=== PATIENT | female | born 1940 | race Caucasian/White ===

== ENCOUNTER 2016-09-02 08:47 | Emergency (ER) | payer MEDICARE, OTHER ==
[~2016-09-02] VITALS: Ht 154.9 cm; Wt 60.0 kg
[~2016-09-02 08:47] MED LIST: BYST5TAB2 PO; CLIN1CAP6 PO; CLON.5 PO; HYDR25TA5 PO; LEVA500T PO; PRIL40CA PO; ZOCO40TA PO; ZOLO50TA PO
[2016-09-02 08:49] VITALS: BP 136/60; PULSE 128; RESP 18; TEMP 98.8; O2SAT 95
[2016-09-02] MEDS ORDERED: ONDANSETRON HCL 4 MG/2 ML VIAL IVP ONE (09:15)
[2016-09-02] MEDS ORDERED: SODIUM CHLORIDE 0.9% FLUSH 10 ML FLUSH IV FLUSH PRN (09:15)
--- NOTE | 2016-09-02 09:21 | PD ---
HPI Chief Complaint: Abdominal Pain Time Seen by Provider: 09:08 Travel History International Travel<30 days: No Contact w/Intl Traveler<30days: No Traveled to known affect area: No History of Present Illness HPI The patient was seen and examined in the presence of the nurse. Complains of abdominal pain. Rather diffuse in nature but seems worse in the left lower quadrant. She says that she had a CAT scan 3 weeks ago showing diverticulitis and has had multiple antibiotic courses but the pain keeps coming back. Had 2 episodes of diarrhea this morning. Has nausea. No fever. Severity is moderate. No alleviating factors. Duration of pain in total is 5 weeks of abdominal pain PFSH Past Medical History Autoimmune Disease: No Depression: Yes Cancer: No Cardiovascular Problems: Yes High Cholesterol: Yes COPD: Yes Diabetes: No Diminished Hearing: No Endocrine: No Gastrointestinal Disorders: Yes (INGUINAL HERNIA) Genitourinary: No Hypertension: Yes Immune Disorder: No Musculoskeletal: No Neurologic: No Psychiatric: Yes (DR MCQUEEN/DEPRESSION MEDS IN PAST) Reproductive: No Respiratory: Yes Immunizations Current: Yes Past Surgical History Abdominal Surgery: Yes (INGUINAL HERNIORRHAPHY) Body Medical Devices: pin in wrist Eye Surgery: Yes (CATARACTS) Gynecologic Surgery: Yes (TUBAL LIGATION 40 YRS AGO) Social History Alcohol Use: No Tobacco Use: No Substance Use: No Allergies-Medications (Allergen,Severity, Reaction): Coded Allergies: No Known Allergies (Verified , 03/07/16) Reported Meds & Prescriptions Reported Meds & Active Scripts Active Zoloft (Sertraline HCl) 50 Mg Tab 50 Mg PO DAILY Prilosec (Omeprazole) 40 Mg Cap 40 Mg PO DAILY Hydrochlorothiazide 25 Mg Tab 25 Mg PO DAILY Zocor (Simvastatin) 40 Mg Tab 40 Mg PO DAILY Bystolic (Nebivolol) 5 Mg Tab 5 Mg PO DAILY Reported Klonopin (Clonazepam) 0.5 Mg Tab 0.5 Mg PO BID Review of Systems General / Constitutional: No: Fever Eyes: No: Visual changes HENT: No: Headaches Cardiovascular: No: Chest Pain or Discomfort Respiratory: No: Shortness of Breath Gastrointestinal: Positive: Nausea, Diarrhea, Abdominal Pain Genitourinary: No: Dysuria Musculoskeletal: No: Pain Skin: No Rash Neurologic: No: Weakness Psychiatric: No: Depression Endocrine: No: Polydipsia Hematologic/Lymphatic: No: Easy Bruising Physical Exam Narrative GENERAL: Well-nourished, well-developed patient with abdominal pain and nausea and diarrhea. SKIN: Focused skin assessment reveals no rash and nodules. Skin is Warm and dry. HEAD: Atraumatic. Normocephalic. EYES: Pupils equal and round. No scleral icterus. No injection or drainage. ENT: No nasal bleeding or discharge. Mucous membranes pink and moist. NECK: Trachea midline. No JVD. CARDIOVASCULAR: Regular rate and rhythm. No murmur appreciated. RESPIRATORY: No accessory muscle use. Clear to auscultation. Breath sounds equal bilaterally. GASTROINTESTINAL: Abdomen soft, has bilateral lower quadrant tenderness, worse on the left. No rebound or guarding, nondistended. Hepatic and splenic margins not palpable. MUSCULOSKELETAL: No obvious deformities. No clubbing. No cyanosis. No edema. NEUROLOGICAL: Awake and alert. No obvious cranial nerve deficits. Motor grossly within normal limits. Normal speech. PSYCHIATRIC: Appropriate mood and affect; insight and judgment normal. Data Data Last Documented VS Vital Signs Date Time Temp Pulse Resp B/P Pulse Ox O2 Delivery O2 Flow Rate FiO2 09/02/16 11:54 103 18 131/81 96 09/02/16 08:49 98.8 Orders Complete Blood Count With Diff (09/02/16 09:14) Comprehensive Metabolic Panel (09/02/16 09:14) Lipase (09/02/16 09:14) Prothrombin Time / Inr (Pt) (09/02/16 09:14) Act Partial Throm Time (Ptt) (09/02/16 09:14) Urinalysis - C+S If Indicated (09/02/16 09:14) Ct Abd/Pel W Iv Contrast(Rout) (09/02/16 09:14) Iv Access Insert/Monitor (09/02/16 09:14) NPO (09/02/16 09:14) Ondansetron Inj (Zofran Inj) (09/02/16 09:15) Sodium Chloride 0.9% Flush (Ns Flush) (09/02/16 09:15) Iohexol 350 Inj (Omnipaque 350 Inj) (09/02/16 10:17) Labs Laboratory Tests Test 09/02/16 09/02/16 09:10 10:45 White Blood Count 17.6 TH/MM3 Red Blood Count 4.33 MIL/MM3 Hemoglobin 13.0 GM/DL Hematocrit 40.0 % Mean Corpuscular Volume 92.4 FL Mean Corpuscular Hemoglobin 30.0 PG Mean Corpuscular Hemoglobin 32.5 % Concent Red Cell Distribution Width 14.4 % Platelet Count 254 TH/MM3 Mean Platelet Volume 8.9 FL Neutrophils (%) (Auto) 91.2 % Lymphocytes (%) (Auto) 2.3 % Monocytes (%) (Auto) 6.2 % Eosinophils (%) (Auto) 0.0 % Basophils (%) (Auto) 0.3 % Neutrophils # (Auto) 16.1 TH/MM3 Lymphocytes # (Auto) 0.4 TH/MM3 Monocytes # (Auto) 1.1 TH/MM3 Eosinophils # (Auto) 0.0 TH/MM3 Basophils # (Auto) 0.0 TH/MM3 CBC Comment DIFF FINAL Differential Comment Prothrombin Time 10.5 SEC Prothromb Time International 1.0 RATIO Ratio Activated Partial 28.0 SEC Thromboplast Time Sodium Level 136 MEQ/L Potassium Level 4.1 MEQ/L Chloride Level 104 MEQ/L Carbon Dioxide Level 20.1 MEQ/L Anion Gap 12 MEQ/L Blood Urea Nitrogen 17 MG/DL Creatinine 0.64 MG/DL Estimat Glomerular Filtration 91 ML/MIN Rate Random Glucose 105 MG/DL Calcium Level 9.1 MG/DL Total Bilirubin 0.7 MG/DL Aspartate Amino Transf 28 U/L (AST/SGOT) Alanine Aminotransferase 20 U/L (ALT/SGPT) Alkaline Phosphatase 54 U/L Total Protein 6.8 GM/DL Albumin 3.5 GM/DL Lipase 101 U/L Urine Color YELLOW Urine Turbidity CLEAR Urine pH 5.5 Urine Specific [place] GREATER THAN 1.050 Urine Protein TRACE mg/dL Urine Glucose (UA) NEG mg/dL Urine Ketones TRACE mg/dL Urine Occult Blood NEG Urine Nitrite NEG Urine Bilirubin NEG Urine Urobilinogen LESS THAN 2.0 MG/DL Urine Leukocyte Esterase NEG Urine RBC 1 /hpf Urine WBC 2 /hpf Urine Squamous Epithelial <1 /hpf Cells Urine Transitional Epithelial <1 /hpf Cells Urine Mucus FEW /lpf Microscopic Urinalysis Comment CULT NOT INDICATED MDM Medical Decision Making Medical Screen Exam Complete: Yes Emergency Medical Condition: Yes Medical Record Reviewed: Yes Differential Diagnosis Diverticulitis, obstruction, abscess, ileus Narrative Course I have reviewed the patient's electronic medical record. She was here twice in February 2016, last time was for depression IV placed CBC shows some leukocytosis Metabolic profile is normal LFTs are normal Lipase is normal Coagulation studies are normal Urinalysis is clean CT of abdomen and pelvis shows some mild colitis in both lower quadrants. Appendix is normal. I discussed the findings with radiologist Dr. Gurpreet Groves I gave her IV Zofran Patient has had this problem for 3 weeks now and is working with her physician on it. Recommended she follow up with her GI physician. May require tissue diagnosis via colonoscopy to get formal diagnosis. Type of her colitis is unclear but I doubt it's infectious. May be inflammatory. I wrote her medication for pain and nausea if needed. Diagnosis Primary Impression: Colitis Additional Instructions: The patient was advised to follow up with their physician and return if they worsen. The patient was warned about potential sedation for the medications they will receive on prescription. Med/Other Pt SpecificInfo: Prescription(s) given Scripts Oxycodone-Acetaminophen (Percocet)5-325 mg Tab1 Tab PO Q6H PRN (PAIN) #20 TAB Ref 0 Prov:Donnie Lowe MD 09/02/16 Ondansetron (Zofran)4 Mg Tab4 Mg PO Q6HR PRN (NAUSEA OR VOMITING) #15 TAB Ref 0 Prov:Donnie Lowe MD 09/02/16 Disposition: 01 DISCHARGE HOME Condition: Stable Donnie Lowe MD September 02, 2016 09:21
[2016-09-02 09:31] LABS: AUTOMATED NEUTROPHIL # 16.1 TH/MM3 (1.8-7.7); BASOPHIL % 0.3 % (0.0-2.0); HEMO FLAGS DIFF FINAL; LYMPH % 2.3 % (9.0-44.0); LYMPHOCYTE # 0.4 TH/MM3 (1.0-4.8); MEAN CELL VOLUME 92.4 FL (80.0-100.0); MEAN CORPUSCULAR HGB CONC 32.5 % (32.0-36.0); MONO % 6.2 % (0.0-8.0); NEUT % 91.2 % (16.0-70.0); PLATELET COUNT 254 TH/MM3 (150-450); RED BLOOD COUNT 4.33 MIL/MM3 (4.00-5.30); RED CELL DISTRIBUTION WIDTH 14.4 % (11.6-17.2); WHITE BLOOD COUNT 17.6 TH/MM3 (4.0-11.0)
[2016-09-02 09:42] LABS: PROTHROMBIN TIME - PATIENT 10.5 SEC (9.8-11.6)
[2016-09-02 09:48] LABS: ANION GAP 12 MEQ/L (5-15); AST (GOT) 28 U/L (15-37); BICARBONATE 20.1 MEQ/L (21.0-32.0); BLOOD UREA NITROGEN 17 MG/DL (7-18); CHLORIDE 104 MEQ/L (98-107); GLOMERULAR FILTRATION RATE 91 ML/MIN (>89); POTASSIUM 4.1 MEQ/L (3.5-5.1); SODIUM (NA) 136 MEQ/L (136-145)
[2016-09-02 09:57] LABS: ALKALINE PHOSPHATASE 54 U/L (45-117); ALT (GPT) 20 U/L (10-53); TOTAL BILIRUBIN ADULT 0.7 MG/DL (0.2-1.0)
[2016-09-02] MEDS ORDERED: IOHEXOL 350 MG/ML 10 ML VIAL (for RAD DIAG) IV ONE (10:17)
--- NOTE | 2016-09-02 10:30 | RADRPT ---
EXAM DATE/TIME: 09/02/2016 10:10 [facility] COMPARISON: No previous studies available for comparison. INDICATIONS : Bilateral lower abdominal pain with nausea. IV CONTRAST: 95 cc Omnipaque 350 (iohexol) IV ORAL CONTRAST: No oral contrast ingested. RADIATION DOSE: 5.41 CTDIvol (mGy) MEDICAL HISTORY : Hypertension. Cardiovascular disease Hernia, inguinal. SURGICAL HISTORY : Tubal ligation. ENCOUNTER: Initial ACUITY: 1 day PAIN SCALE: 5/10 LOCATION: Bilateral lower quadrant TECHNIQUE: Volumetric scanning of the abdomen and pelvis was performed. Using automated exposure control and adjustment of the mA and/or kV according to patient size, radiation dose was kept as low as reasonably achievable to obtain optimal diagnostic quality images. FINDINGS: The lung base is are clear. The liver contains several small cysts. The spleen, pancreas and adrena ls unremarkable. There is symmetrical renal function Prominent gallbladder is evident with without evidence for acute cholecystitis There is a normal-appearing appendix. There are minimal inflammatory changes around the distal ileum and proximal cecum. The pelvic contents are otherwise unremarkable There is evidence for previous hernia surgery on the right. CONCLUSION: Minimal apparent inflammatory changes around the terminal ileum and cecum. Minimal i nflammatory changes are seen around the sigmoid colon. Most suggestive of colitis and not an appendi citis. Gurpreet Groves MD FACR on September 02, 2016 at 10:24 Board Certified Radiologist. This report was verified electronically.
[2016-09-02 11:09] LABS: BLOOD, URINE NEG (NEG); GLUCOSE,URINE NEG (NEG); KETONE, URINE TRACE mg/dL (NEG); MUCUS URINE FEW /lpf (OCC); NITRITE,URINE NEG (NEG); PH, URINE 5.5 (5.0-8.5); SQUAMOUS EPITHELIAL CELL URINE <1 /hpf (0-5); TRANSITIONAL EPI CELLS, URINE <1 /hpf; URINE COLOR YELLOW (YELLW/STRAW)
[2016-09-02 11:11] LABS: COMMENT (UR) CULT NOT INDICATED; CULTURE IF INDICATED CULT NOT INDICATED
[2016-09-02 11:54] VITALS: BP 131/81; PULSE 103; RESP 18; O2SAT 96
[2016-09-02] MEDS ORDERED: PERC5TAB12 PO (14:14)
[2016-09-02] MEDS ORDERED: ZOFR4TAB PO (14:14)
== END 2016-09-02 14:25 | disposition home or self-care (01) ==
LOC: NEPE 08:47
DX: K52.9 Noninfective gastroenteritis and colitis, unspecified (principal); I10 Essential (primary) hypertension
CPT/HCPCS: 74177; 80053; 81001; 83690; 85025; 85610; 85730; 96374; 99284; J2405; Q9967